=== PATIENT | female | born 1995 | race Caucasian/White ===

== ENCOUNTER 2020-10-19 13:54 | Inpatient (IN) | payer BC, SELFPAY ==
[2020-10-19] VITALS (109 sets, daily range): BP systolic 58–131; BP diastolic 23–99; PULSE 58–185; RESP 18–20; TEMP 36.4–36.7; O2SAT 95–100; BMI 36.5
[2020-10-19] MEDS: AMPICILLIN 2 GM/NS 100 ML 2 GM/100 ML BAG IVPB (17:01)
[2020-10-19] MEDS: LACTATED RINGERS 1,000 ML 125 ML IV CONT ×2 (17:02→19:34)
[2020-10-19 17:03] LABS: Basophils Percent Auto 0.2 % (0.2-1.2); Eosinophils Percent Auto 0.2 % (0-4.4); Immature Granulocyte Absolute 0.06 K/mm3 (0.00-0.031); Immature Granulocyte Percent A 0.5 % (0-0.5); Lymphocytes Percent Auto 9.6 % (18.3-44.2); Mean Corpuscular HGB Conc 35.1 g/dl (32-36); Mean Corpuscular Hemoglobin 30.6 pg (26-34); Mean Corpuscular Volume 87.1 fl (80-100); Mean Platelet Volume 8.9 fl (7.4-10.4); Monocytes Absolute Auto 0.4 K/mm3 (0.1-0.6); Monocytes Percent Auto 3.4 % (2.6-8.5); Neutrophils Absolute Auto 10.8 K/mm3 (1.3-6.7); Neutrophils Percent Auto 86.1 % (45.5-73.1); Platelet Count Result 262 k/mm3 (150-375); Red Blood Count 4.25 M/mm3 (4.2-5.4); Red Cell Distribution Width 12.7 % (11.5-14.5); White Blood Count 12.6 K/mm3 (4.5-10.0)
--- NOTE | 2020-10-19 17:04 | P.PNAN_ITS ---
Anes - Eval Pre Procedure Procedure: labor epidural Date/Time: 10/19/20 17:04 Surgeon: delma Pre Op Diagnosis: Contractions Patient Data Age: 25 Gender: F Height: Weight: Last Vital Signs Pulse 91 10/19/20 17:00 BP 113/61 10/19/20 17:00 Allergies Allergy/AdvReac Type Severity Reaction Status Date / Time No Known Allergies Allergy Verified 10/19/20 13:39 Home Medications Medication Instructions Recorded Confirmed Type prenat.vits,gregg,uhq-enbc-fetzn 1 tablet PO DAILY 10/19/20 10/19/20 History [ #2] Laboratory Tests 10/19/20 10/19/20 16:53 16:53 WBC Pending RBC Pending Hgb Pending Hct Pending MCV Pending MCH Pending MCHC Pending RDW Pending Plt Count Pending MPV Pending Immature Gran % (Auto) Pending Neut % (Auto) Pending Lymph % (Auto) Pending [place] % (Auto) Pending Eos % (Auto) Pending Baso % (Auto) Pending Lymph # (Auto) Pending [place] # (Auto) Pending Eos # (Auto) Pending Baso # (Auto) Pending Abs Immat Gran (auto) Pending Absolute Neuts (auto) Pending Absolute Nucleated RBC Pending Nucleated RBC % Pending RPR Pending Patient hx anesthesia problems: none Family hx anesthesia problems: none PMFSH Family History Family History (Updated 10/19/20 @ 13:49 by Nilo Garza RN) Mother Lupus High cholesterol Heart disease Pre-diabetes Hx of cholecystectomy Grandparent Breast cancer Grandparent Brain cancer Diabetes mellitus Sibling Hx of cholecystectomy Social History Social History Substance use: never Spiritual care concerns: No Exam Day of Procedure 10/19/20 17:04
--- NOTE | 2020-10-19 18:51 | WPDOBADMIT ---
Obstetrics - Admit Note Admission Note: record reviewed. Additions to the history and/or subsequent changes in the physical findings follow. 25 y/o at 36 4/7 weeks here with contractions. Was seen in the office today and her cervix was 2 cm dilated. Feeling painful contractions now. GBS unknown (was collected in the office today.). Good movement. No leakage of fluid. AVSS NST reactive TOCO: contractions every 5 min ABD soft, nontender, gravid, vertex EXT nontender Cervix 4/80/-2. A: IUP at 36 4/7 weeks with labor. P: Ampicillin. Anticipate .
[2020-10-19] MEDS: AMPICILLIN 1 GM/NS 50 ML 1 GM/50 ML BAG IVPB (20:59)
--- NOTE | 2020-10-19 21:38 | LDADM ---
This patient, Bev Duncan, was admitted to Labor/Delivery/Recovery 107 on 10/19/20 at 13:54. Plans for labor, pain management and were discussed with patient. Patient/family oriented to hospital policies and general routines including ID bracelet, bed and alarms, visiting hours, pain management, procedures, bathroom and other care routines, personal items, smoking policy, room service/diet and guest tray routines, security routines, and visiting hours. Patient/Family are encouraged to report perceived risks to care and to ask questions if they do not understand what they are told or what they should do. See OBIX for further documentation.
[2020-10-20] VITALS (55 sets, daily range): BP systolic 81–132; BP diastolic 54–71; PULSE 69–109; RESP 16–20; TEMP 36.4–37.4; O2SAT 98–100
[2020-10-20] MEDS: AMPICILLIN 1 GM/NS 50 ML 1 GM/50 ML BAG IVPB (01:01)
[2020-10-20] MEDS: LACTATED RINGERS 1,000 ML 125 ML IV CONT (01:01)
--- NOTE | 2020-10-20 02:07 | PM.OBPNLAB ---
Pain Control Date/time seen: 10/20/20 02:07 Comments: Comfortable with epidural Pelvic Exam Dilation (cm): 10 Effacement (%): 100 station: +1 Contractions Contraction frequency: 4 Contraction pattern: Regular Status status: Category l Assessment and Plan Comments: Pushing well. Anticipate .
[2020-10-20] MEDS: OXYTOCIN 30 UNITS/NS 500 ML 30 UNITS/500 ML BAG IV CONT (02:20)
--- NOTE | 2020-10-20 04:37 | P.PCNOB_ITS ---
OB - Delivery Note Procedure Delivery date: 10/20/20 Procedure: Vacuum assisted vaginal delivery events: Labor < 37 Weeks Induction method: none Delivery augmentation: pitocin Delivery monitor: external FHT and external uterine Route of delivery: vacuum extraction Laceration Description: Perineal - 2nd Degree Delivery repair: vicryl (3-0) Specimen: Yes (cord blood, placenta) Quantitative Blood Loss (ml): 320 Anesthesia type: Epidural Disposition: PACU Complications: None Narrative: 25 y/o at 36 5/7 weeks gestation who had presented to the hospital with complaint of contractions. Labor was diagnosed. She received ampicillin for GBS unknown status in the . She received an epidural for pain control. Her labor progressed and her cervix dilated completely. She pushed with good effort for over 2 hours and was able to bring the vertex to the +2 of 3 station, in ROP position. She also received oxytocin augmentation during the second stage. At this point, as she had stopped making descent, I offered VAVD vs. vs. continued pushing. The patient and her and I reviewed risks, benefits and alternatives in detail and she opted to proceed with VAVD. The Kiwi vacuum cup was applied to the vertex. Using the Dreifingergriff, the head was gently flexed. Over 3 contractions, and with no pop-offs, the head descended and rotated from ROP to JULIO position, then delivered to the perineum. The Kiwi was disconnected. The body delivered. The nose and mouth were bulb suctioned. After a delay, the cord was clamped and cut. The infant was handed off the field. Cord blood was collected. The placenta delivered spontaneously and was grossly normal in appearance. The usual 3 vessel cord was noted. A second degree midline perineal laceration was sustained, with bilateral vaginal sulcal lacerations. These were reapproximated using 3 0 Vicryl in the usual layered fashion. Excellent hemostasis resulted as did excellent reapproximation of the normal anatomy. Needle and instrument counts were correct. The patient was taken to recovery room in stable condition. The went to the nursery in stable condition. I was present and scrubbed for the entire delivery. Pediatrics was also present for delivery. [place] Baby Date of : 10/20/20 Time of : 04:13 Weeks of gestation at delivery: 36 Infant gender: Male Weight (pounds): 6 Weight (ounces): 14 presentation: vertex position: Right Occiput Anterior Placenta delivery description: Spontaneous and Normal Configuration cord vessel description: 3 Vessels and Delayed Cord Clamping score one minute: 7 score five minutes: 8
--- NOTE | 2020-10-20 04:44 | PM.OBDSVD ---
DS: Admitting Diagnosis Admitting Diagnosis Admitting Diagnosis: IUP at 36 4/7 weeks Labor DS: Discharge Diagnosis Discharge Diagnosis (1) Vacuum-assisted vaginal delivery: Code(s): Z37.9 - Outcome of delivery, unspecified Status: Acute (2) delivery: Code(s): O60.10X0 - labor with delivery, unspecified trimester, not applicable or unspecified Status: Acute OB - DS: Summary OB Procedures : None OB Procedures Intrapartum: Vacuum extraction OB Procedures: : None DS: Data Data Completed and Pending Labs on day of discharge: Labs from last 24 hours 10/19/20 10/19/20 10/19/20 16:53 16:53 16:53 WBC 12.6 H RBC 4.25 Hgb 13.0 Hct 37.0 MCV 87.1 MCH 30.6 MCHC 35.1 RDW 12.7 Plt Count 262 MPV 8.9 Immature Gran % (Auto) 0.5 Neut % (Auto) 86.1 H Lymph % (Auto) 9.6 L [place] % (Auto) 3.4 Eos % (Auto) 0.2 Baso % (Auto) 0.2 Lymph # (Auto) 1.20 [place] # (Auto) 0.4 Eos # (Auto) 0.0 Baso # (Auto) 0.0 Abs Immat Gran (auto) 0.06 H Absolute Neuts (auto) 10.8 H Absolute Nucleated RBC 0.0 Nucleated RBC % 0.0 RPR Pending Blood Type A Positive Antibody Screen Negative Discharge Plan Discharge Attending physician on discharge: Patrick Menendez Discharging Clinician: Patrick Menendez Patient Disposition: Home, Self-Care Activity: pelvic rest Diet: regular Discharge Instructions: Call or return if temperature above 100.4? F, increased abdominal pain, increased vaginal bleeding or any new problems. Stand Alone Forms: General Discharge Information Follow-up/Referrals: Patrick Menendez MD [Physician] - 6 Weeks Discharge Medications: New ibuprofen 600 mg tablet 600 mg PO Q6H PRN (Reason: cramps) Qty: 30 RF: 0 ferrous sulfate 325 mg (65 mg iron) tablet 325 mg PO DAILY Qty: 30 RF: 0 No Action #2 Tablet 1 tablet PO DAILY RF: 0 Date of admission: 10/19/20 13:54 Primary Care Provider: PHYSICIAN,PREVENTIVE MEDICINE SPECIALIST Admitting Provider: Patrick Menendez Attending physician on admission: Patrick Menendez Condition: Stable
[2020-10-20] MEDS: OXYTOCIN 30 UNITS/NS 500 ML 30 UNITS/500 ML BAG 125 UNITS IV CONT (04:49)
[2020-10-20] MEDS: IBUPROFEN 600 MG TABLET PO ×3 (08:07→21:12)
--- NOTE | 2020-10-20 10:39 | PC.NURSE ---
Consulted with patient, reviewed feeding cues, frequencies, duration of feedings, feeding elimination flow sheet, and signs of adequate intake. Infant on breast when I entered the room. Deep latch noted, has lips flanged out, mom denies pain. Reviewed positioning/alignment, holding breast and asymmetrical latch on. Infant was able to latch correctly. Infant nursed eagerly, with steady draws and frequent swallowing noted. Reviewed signs of a correct latch, effective nursing and suck swallow ratio. Infant was able to maintain latch without discomfort to mother. Instructed mother to call out for RN assistance if she is unable to latch for feeding or she has discomfort with nursing. Instructed feeding should be initiated three hours from start of last feeding or if feeding cues are noted before. Mother voiced understanding of information shared.
[2020-10-21] MEDS: IBUPROFEN 600 MG TABLET PO ×3 (04:24→17:38)
[2020-10-21 04:39] LABS: Hematocrit 29.4 % (37.0-47.0)
--- NOTE | 2020-10-21 07:45 | WPDANLDPN2 ---
Anes-Prog Note L&D Date/Time: 10/21/20 07:45 Comfortable throughout: labor and delivery Neuraxial method: epidural Epidural/Spinal procedure site: clean & non-tender Neuro status: Neuro function grossly intact. Cardiovascular status: normal Respiratory status: normal Airway patency: baseline Mental status: baseline Post-Op hydration status: normal Vital Signs: Last Vital Signs Temp 97.5 F L 10/20/20 21:00 Pulse 69 10/20/20 21:00 Resp 16 10/20/20 21:00 BP 103/60 10/20/20 21:00 Pulse Ox 100 10/20/20 21:00 Pain score (VAS): 0/10 Patient feedback: Patient satisfied with anesthetic care. Other findings: some skin numbness reported on right thigh, informed pt that it should reso
--- NOTE | 2020-10-21 08:00 | PC.NURSE ---
PT introductions made and plan of care discussed per post pain management, breast feeding, daily care activities. PT verbalized understanding of such care.
--- NOTE | 2020-10-21 08:36 | PM.OBPNVD ---
OB - PN: Subj Subjective Date/time seen: 10/21/20 08:36 Narrative: Pain OK. Would like circumcision for son. OB - PN: Obj Data Labs CBC & Chem 7: 10/21/20 04:28 Labs: Laboratory Results - last 24 hr 10/21/20 04:28 Hgb 10.0 L D Hct 29.4 L OB - PN A/P Plan Comments: A: PPD#1, doing well. P: Routine care. Reviewed circ. Exam Psych: Other: AVSS ABD soft, nontender, fundus firm EXT nontender
[2020-10-21] MEDS: MINERAL OIL 30 ML UDC (09:15)
[2020-10-21] MEDS: MULTIVIT/MIN/PREN/FOL AC/IRON TABLET 1 TAB PO (09:55)
[2020-10-21] MEDS: DOCUSATE SODIUM 100 MG CAPSULE PO ×2 (09:55→17:38)
[2020-10-21] MEDS: ACETAMINOPHEN 325 MG TABLET 650 MG PO ×2 (09:56→17:38)
[2020-10-21 10:00] VITALS: BP 119/68; PULSE 61; RESP 18; TEMP 35.8; O2SAT 100
[2020-10-21 10:37] LABS: Rapid Plasma Reagin Non-Reactive (NonReactive)
[2020-10-21 19:30] VITALS: BP 105/68; PULSE 68; RESP 16; TEMP 36.6
[2020-10-22] MEDS: IBUPROFEN 600 MG TABLET PO ×3 (00:10→15:07)
[2020-10-22] MEDS: DOCUSATE SODIUM 100 MG CAPSULE PO (07:40)
[2020-10-22 08:30] VITALS: BP 126/74; PULSE 80; RESP 16; TEMP 37; O2SAT 99
--- NOTE | 2020-10-22 09:02 | PM.OBPNVD ---
OB - PN: Subj Subjective Date/time seen: 10/22/20 09:02 Narrative: Pain OK. Would like to go home. OB - PN: Obj Data Labs CBC & Chem 7: 10/21/20 04:28 Labs: Laboratory Results - last 24 hr 10/19/20 16:53 RPR Non-reactive OB - PN A/P Plan Comments: A: PPD#2, doing well. P: Home to f/u 6 weeks. Exam Psych: Other: AVSS ABD soft, nontender, fundus firm EXT nontender
[2020-10-22] MEDS: BENZOCAINE 20% AER SPR (*SP) 56 GM CAN 1 SPRAY TOPICAL (10:12)
[2020-10-22] MEDS: MULTIVIT/MIN/PREN/FOL AC/IRON TABLET 1 TAB PO (10:12)
[2020-10-22] MEDS: WITCH HAZEL 40 PADS 1 PAD TOPICAL (10:12)
--- NOTE | 2020-10-22 12:32 | PC.NURSE ---
0840 Breast feeding note; mother reports baby seems to have been sleepier at feedings since last evening. Baby's bilirubin level higher, but WNL, but close to requiring phototherapy. Bilirubin to be repeated about noon today. Mother states she feels her milk is starting to come in. Pt set up with breast pump to hopefully have supplemental pumped breast milk to feed to baby. Baby is 36 weeks. Yesterday baby seemed to be nursing very eagerly, and vigorously for long feedings. Now mother to nurse baby about 15 minutes on each side, then offer supplement when available, still working to get infant to nurse q2-3h and on demand. Reviewed breast pump set up, and care of equipment. 24mm flanges used and appeared appropriate size. Parents voiced understanding of all information shared, and agree with the plan.
--- NOTE | 2020-10-22 15:38 | PC.NURSE ---
Dietary notified that patient is going to a [facility]
[2020-10-24 14:13] VITALS: BP 121/75; PULSE 83; RESP 20; TEMP 37.2; O2SAT 99
== END 2020-10-22 15:46 | disposition home or self-care (01) | DRG 807 ==
LOC: ANHLDR 10-20 04:46 → ANHOB2 10-20 08:19
PROVIDERS: Admitting Provider Obstetrics & Gynecology; Visit Provider Obstetrics & Gynecology
DX: O60.14X0 Preterm labor third trimester with preterm delivery third trimester, not applicable or unspecified (principal); Z37.0 Single live birth; Z3A.36 36 weeks gestation of pregnancy; O70.1 Second degree perineal laceration during delivery
CPT/HCPCS: 36415; 85014; 85018; 85025; 86592; 86850; 86900; 86901; 88307; A9270; J0290; J2590; J7120

== ENCOUNTER 2023-02-03 11:18 | Outpatient (CLI) | payer BC, SELFPAY ==
[2023-02-03 11:49] VITALS: BP 144/83; PULSE 62
[2023-02-03 12:01] VITALS: BP 141/77; PULSE 57
[2023-02-03 12:01] LABS: Basophils Percent Auto 0.4 % (0.2-1.2); Eosinophils Absolute Auto 0.1 K/mm3 (0-0.3); Eosinophils Percent Auto 0.7 % (0-4.4); Hematocrit 38.4 % (37.0-47.0); Hemoglobin 13.4 g/dL (12.0-15.0); Immature Granulocyte Absolute 0.06 K/mm3 (0.00-0.031); Immature Granulocyte Percent A 0.6 % (0-0.5); Lymphocytes Absolute Auto 2.31 K/mm3 (0.9-3.2); Lymphocytes Percent Auto 23.9 % (18.3-44.2); Mean Corpuscular HGB Conc 34.9 g/dl (32-36); Mean Corpuscular Hemoglobin 30.5 pg (26-34); Mean Corpuscular Volume 87.3 fl (80-100); Mean Platelet Volume 9.3 fl (7.4-10.4); Monocytes Absolute Auto 0.4 K/mm3 (0.1-0.6); Monocytes Percent Auto 3.6 % (2.6-8.5); Neutrophils Absolute Auto 6.8 K/mm3 (1.3-6.7); Neutrophils Percent Auto 70.8 % (45.5-73.1); Platelet Count Result 249 k/mm3 (150-375); Red Cell Distribution Width 12.5 % (11.5-14.5); White Blood Count 9.7 K/mm3 (4.5-10.0)
[2023-02-03 12:08] LABS: Creatinine Urine 60.8 mg/dL; Total Protein Urine Random 35 mg/dL; Ur Ttl Prot Creatinine Ratio 0.58 mg/mg (0-0.20)
[2023-02-03 12:09] LABS: Appearance Urine Clear (Clear); Bacteria Urine Rare /hpf; Bilirubin Urine Negative (Negative); Blood Urine Negative (Negative); Color Urine Yellow (Yellow); Glucose Urine UA Negative (Negative); Ketones Urine Negative (Negative); Leukocyte Esterase Ur 2+ LEU/UL (NEGATIVE); Nitrate Urine Negative (Negative); Non Pathogenic Casts 0-2; Protein Urine 1+ mg/dL (Negative); RBC Urine 0-2 /hpf (0-2); Specific Grav Ur 1.009 (1.001-1.035); Squamous Epithelial Cell Urine Moderate /hpf (Few); Urobilinogen Urine 0.2 mg/dL (<2.0); WBC Urine 21-50 /hpf (0-3); pH Urine 6.5 (5.0-9.0)
[2023-02-03 12:11] LABS: Add Urine Microscopic? YES
[2023-02-03 12:16] VITALS: BP 144/85; PULSE 51
[2023-02-03 12:18] LABS: Alanine Aminotransferase 24 U/L (6-35); Albumin Level 3.6 g/dL (3.5-5.1); Alkaline Phosphatase 167 U/L (38-126); Anion Gap 9 mmol/L (8-16); Aspartate Amino Transferase 26 U/L (14-36); Bilirubin,Total 0.3 mg/dL (0.2-1.3); Blood Urea Nitrogen 10 mg/dL (7-17); Calcium 8.5 mg/dL (8.4-10.2); Carbon Dioxide 20 mmol/L (22-30); Chloride 105 mmol/L (98-107); Estimated Glomerular Filt Rate > 60; Glucose 85 mg/dL (65-110); Sodium 134 mmol/L (137-145); Uric Acid 5.8 mg/dL (2.5-7.5)
[2023-02-03 12:31] VITALS: BP 146/82; PULSE 56
[2023-02-03 12:46] VITALS: BP 142/78; PULSE 55
--- NOTE | 2023-02-03 12:52 | P.PNOB_ITS ---
OB - Triage/Final Diagnosis Visit Information Date of evaluation: 02/03/23 Reason for evaluation: other ( hypertension) Comments/Additional reasons for admission: I have assessed the risk for this patient, Bev Duncan, and determined that she would benefit from observation care. Evaluation Laboratory results: Laboratory Tests 02/03/23 02/03/23 11:35 11:50 WBC 9.7 RBC 4.40 Hgb 13.4 D Hct 38.4 MCV 87.3 MCH 30.5 MCHC 34.9 RDW 12.5 Plt Count 249 MPV 9.3 Immature Gran % (Auto) 0.6 H Neut % (Auto) 70.8 Lymph % (Auto) 23.9 [place] % (Auto) 3.6 Eos % (Auto) 0.7 Baso % (Auto) 0.4 Lymph # (Auto) 2.31 [place] # (Auto) 0.4 Eos # (Auto) 0.1 Baso # (Auto) 0.0 Abs Immat Gran (auto) 0.06 H Absolute Neuts (auto) 6.8 H Absolute Nucleated RBC 0.0 Nucleated RBC % 0.0 Sodium 134 L Potassium 4.0 Chloride 105 Carbon Dioxide 20 L Anion Gap 9 BUN 10 Creatinine 0.60 L Estim Creat Clear Calc Not Reportable Estimated GFR > 60 Glucose 85 Uric Acid 5.8 Calcium 8.5 Total Bilirubin 0.3 AST 26 ALT 24 Alkaline Phosphatase 167 H Total Protein 7.0 Albumin 3.6 Urine Color Yellow Urine Appearance Clear Urine pH 6.5 Ur Specific [place] 1.009 Urine Protein 1+ H Urine Glucose (UA) Negative Urine Ketones Negative Ur Blood (Man) Negative Urine Nitrate Negative Urine Bilirubin Negative Urine Urobilinogen 0.2 Ur Leukocyte Esterase 2+ H Urine RBC 0-2 Urine WBC 21-50 Ur Squamous Epith Cells Moderate H Urine Bacteria Rare Urine Casts 0-2 U Random Total Protein 35 Urine Creatinine 60.8 Protein/Creat Ratio 2 0.58 H Vital signs: Vital Signs - 24 hr 02/03/23 11:49 02/03/23 12:01 02/03/23 12:16 Pulse Rate 62 57 L 51 L Blood Pressure 144/83 H 141/77 H 144/85 H 02/03/23 12:31 02/03/23 12:46 Pulse Rate 56 L 55 L Blood Pressure 146/82 H 142/78 H
[2023-02-03 13:01] VITALS: BP 142/78; PULSE 55
== END 2023-02-03 12:52 | disposition home or self-care (01) ==
LOC: ANHOBOP 11:23 → ANHOBPP 11:23
PROVIDERS: Visit Provider Obstetrics & Gynecology
DX: O13.9 Gestational [pregnancy-induced] hypertension without significant proteinuria, unspecified trimester (principal); Z3A.00 Weeks of gestation of pregnancy not specified
CPT/HCPCS: 36415; 59025; 80053; 81001; 82570; 84156; 84550; 85025; 87086; 99199

== ENCOUNTER 2023-02-08 08:23 | Outpatient (CLI) | payer BC, SELFPAY ==
[2023-02-08 09:03] LABS: Collection Time Urine 24 HOURS
[2023-02-08 09:28] LABS: Creatinine Urine 73.1 mg/dL; Patient Weight 209 Lbs; Total Protein Urine Random 15 mg/dL
[2023-02-08 09:36] LABS: Creatinine Clearance Urine 122.8 ml/min (75-125); Total Protein Urine 24 Hr 285 mg/24hr (28-141); Total Volume 24 Hour Urine 1900 ml
== END 2023-02-08 08:24 | disposition home or self-care (01) ==
LOC: ANHLAB 08:25
PROVIDERS: Visit Provider Obstetrics & Gynecology
DX: O13.9 Gestational [pregnancy-induced] hypertension without significant proteinuria, unspecified trimester (principal); Z3A.00 Weeks of gestation of pregnancy not specified
CPT/HCPCS: 81050; 82575; 84156

== ENCOUNTER 2023-02-08 08:33 | Outpatient (CLI) | payer BC, SELFPAY ==
[2023-02-08] VITALS (8 sets, daily range): BP systolic 140–155; BP diastolic 83–100; PULSE 52–75
--- NOTE | ~2023-02-08 | US_ITS ---
EXAMINATION: US OB follow up DATE: 02/08/2023 11:25 INDICATION: Hypertension. Third trimester. TECHNIQUE: Real-time ultrasound of the pelvis was performed. COMPARISON: None. FINDINGS: There is a single living fetus in vertex presentation. The placenta is posterior. heart rate i s 153 beats per minute (bpm). The amniotic fluid index is 13.1 cm, which is normal. The following biometric data were obtained: Biparietal diameter (BPD): 7.6 cm; head circumference (HC): 27.4 cm; abdominal circumference (AC): 26 .1 cm; femur length (FL): 6.0 cm. These measurements are concordant. Estimated weight is 1597 g +/- 240 g, which correlates with the 21st percentile when 04/11/23 is used as estimated date of delivery. As single measurements, these parameters are each equal to the following estimated gestational ages: BPD: 30 weeks 3 days. HC: 30 weeks 0 days. AC: 30 weeks 2 days. FL: 31 weeks 2 days. estimated gestational age based solely on measurements from this exam is 30 weeks 4 days +/- 2 weeks 1 days. IMPRESSION: 1. Single living fetus in vertex presentation. 2. Estimated weight is 1597 g +/- 240 g, which correlates with the 21st percentile when 3 is used as estimated date of delivery. Reviewed, dictated and finalized at location A. IMPRESSION: 1. Single living fetus in vertex presentation. 2. Estimated weight is 1597 g +/- 240 g, which correlates with the 21st percentile when 04/11/23 is used as estimated date of delivery.
[2023-02-08 09:15] LABS: Basophils Percent Auto 0.3 % (0.2-1.2); Eosinophils Absolute Auto 0.1 K/mm3 (0-0.3); Eosinophils Percent Auto 0.5 % (0-4.4); Hematocrit 39.1 % (37.0-47.0); Hemoglobin 13.8 g/dL (12.0-15.0); Immature Granulocyte Absolute 0.04 K/mm3 (0.00-0.031); Immature Granulocyte Percent A 0.4 % (0-0.5); Lymphocytes Absolute Auto 1.44 K/mm3 (0.9-3.2); Lymphocytes Percent Auto 14.6 % (18.3-44.2); Mean Corpuscular HGB Conc 35.3 g/dl (32-36); Mean Corpuscular Hemoglobin 30.7 pg (26-34); Mean Corpuscular Volume 87.1 fl (80-100); Mean Platelet Volume 9.3 fl (7.4-10.4); Monocytes Absolute Auto 0.3 K/mm3 (0.1-0.6); Monocytes Percent Auto 2.7 % (2.6-8.5); Neutrophils Percent Auto 81.5 % (45.5-73.1); Platelet Count Result 226 k/mm3 (150-375); Red Blood Count 4.49 M/mm3 (4.2-5.4); Red Cell Distribution Width 12.7 % (11.5-14.5); White Blood Count 9.8 K/mm3 (4.5-10.0)
[2023-02-08 09:29] LABS: Alanine Aminotransferase 35 U/L (6-35); Albumin Level 3.5 g/dL (3.5-5.1); Alkaline Phosphatase 179 U/L (38-126); Anion Gap 5 mmol/L (8-16); Aspartate Amino Transferase 47 U/L (14-36); Bilirubin,Total 0.4 mg/dL (0.2-1.3); Blood Urea Nitrogen 7 mg/dL (7-17); Calcium 8.5 mg/dL (8.4-10.2); Carbon Dioxide 23 mmol/L (22-30); Chloride 105 mmol/L (98-107); Estimated Glomerular Filt Rate > 60; Glucose 89 mg/dL (65-110); Potassium 4.4 mmol/L (3.4-5.0); Sodium 133 mmol/L (137-145); Uric Acid 6.1 mg/dL (2.5-7.5)
--- NOTE | 2023-02-08 10:45 | PC.NURSE ---
[phone]-paged Dr. Menendez [phone]-Called office with no answer [phone]-Left message for Dr. Tolentino on cell phone [phone]-Called office with no answer [phone]-paged Dr. Menendez [phone]- Dr. Menendez returned page. Informed of pt admission with complaints right upper quadrant pain. Pt had headache for 18hrs with no relief from Tylenol. She states that it is now gone. BPs and lab results given. Informed of tracing with occasional variables and occasional 10X10 accelerations. Coming in to see pt and discuss plan of care.
--- NOTE | 2023-02-08 12:12 | PC.NURSE ---
Dr. Menendez at bedside to assess pt and discuss plan of care.
--- NOTE | 2023-02-08 12:25 | PC.NURSE ---
Monitor reapplied to monitor for contractions. No contractions seen on monitor or felt per pt.
[2023-02-08] MEDS: BETAMETHASONE SOD PHOS/ACETATE 30 MG/5 ML VIAL 12 MG IM (12:29)
== END 2023-02-08 12:35 | disposition home or self-care (01) ==
LOC: ANHOBOP 08:41 → ANHOBPP 08:42
PROVIDERS: Visit Provider Obstetrics & Gynecology
DX: O13.9 Gestational [pregnancy-induced] hypertension without significant proteinuria, unspecified trimester (principal); R10.11 Right upper quadrant pain; Z3A.30 30 weeks gestation of pregnancy
CPT/HCPCS: 36415; 59025; 76816; 80053; 84550; 85025; 96372; 99199; J0702

== ENCOUNTER 2023-02-09 12:13 | Outpatient (CLI) | payer BC, SELFPAY ==
[2023-02-09] MEDS: BETAMETHASONE SOD PHOS/ACETATE 30 MG/5 ML VIAL 12 MG IM (12:30)
== END 2023-02-09 12:14 | disposition home or self-care (01) ==
LOC: ANHOBOP 12:18
PROVIDERS: Visit Provider Obstetrics & Gynecology
DX: Z34.90 Encounter for supervision of normal pregnancy, unspecified, unspecified trimester (principal); Z3A.00 Weeks of gestation of pregnancy not specified
CPT/HCPCS: 96372; J0702

== ENCOUNTER 2023-02-15 05:51 | Observation (INO) | payer BC, SELFPAY ==
[2023-02-15] VITALS (31 sets, daily range): BP systolic 135–165; BP diastolic 82–103; PULSE 50–91; RESP 15–16; TEMP 36.4–36.6; O2SAT 95–99; BMI 38.2
--- NOTE | ~2023-02-15 | US_ITS ---
EXAMINATION: US abdomen limited DATE: 02/15/2023 08:20 INDICATION: Abdominal pain. Third trimester . TECHNIQUE: Multiple grayscale and Doppler ultrasound images of the abdomen were obtained. COMPARISON: None FINDINGS: The visualized portion of the head of the pancreas is normal. The liver is normal without f ocal lesion. There is normal flow in main portal vein. The gallbladder is normal in size. No gallston es or gallbladder wall thickening. There was no sonographic Pettit sign. The common duct is normal an d measures 4 mm. IMPRESSION: 1. Normal right upper quadrant ultrasound. Reviewed, dictated and finalized at location A.
[2023-02-15 06:58] LABS: Basophils Absolute Auto 0.1 K/mm3 (0.0-0.1); Basophils Percent Auto 0.4 % (0.2-1.2); Eosinophils Percent Auto 0.3 % (0-4.4); Hematocrit 40.5 % (37.0-47.0); Hemoglobin 14.1 g/dL (12.0-15.0); Immature Granulocyte Absolute 0.09 K/mm3 (0.00-0.031); Immature Granulocyte Percent A 0.7 % (0-0.5); Lymphocytes Absolute Auto 2.05 K/mm3 (0.9-3.2); Lymphocytes Percent Auto 15.3 % (18.3-44.2); Mean Corpuscular HGB Conc 34.8 g/dl (32-36); Mean Corpuscular Hemoglobin 30.5 pg (26-34); Mean Corpuscular Volume 87.7 fl (80-100); Mean Platelet Volume 9.2 fl (7.4-10.4); Monocytes Absolute Auto 0.5 K/mm3 (0.1-0.6); Monocytes Percent Auto 3.7 % (2.6-8.5); Neutrophils Absolute Auto 10.7 K/mm3 (1.3-6.7); Neutrophils Percent Auto 79.6 % (45.5-73.1); Platelet Count Result 234 k/mm3 (150-375); Red Blood Count 4.62 M/mm3 (4.2-5.4); Red Cell Distribution Width 13.1 % (11.5-14.5); White Blood Count 13.4 K/mm3 (4.5-10.0)
[2023-02-15 07:07] LABS: Alanine Aminotransferase 55 U/L (6-35); Albumin Level 3.4 g/dL (3.5-5.1); Alkaline Phosphatase 159 U/L (38-126); Anion Gap 4 mmol/L (8-16); Aspartate Amino Transferase 58 U/L (14-36); Bilirubin,Total 0.4 mg/dL (0.2-1.3); Blood Urea Nitrogen 11 mg/dL (7-17); Calcium 8.7 mg/dL (8.4-10.2); Carbon Dioxide 24 mmol/L (22-30); Chloride 105 mmol/L (98-107); Estimated Glomerular Filt Rate > 60; Glucose 88 mg/dL (65-110); Potassium 4.4 mmol/L (3.4-5.0); Sodium 133 mmol/L (137-145); Uric Acid 6.1 mg/dL (2.5-7.5)
--- NOTE | 2023-02-15 07:11 | LDADM ---
This patient, Bev Duncan, was admitted to OB Post 116 on 02/15/23 at 05:51. Plans for labor, pain management and were discussed with patient. Patient/family oriented to hospital policies and general routines including ID bracelet, bed and alarms, visiting hours, pain management, procedures, bathroom and other care routines, personal items, smoking policy, room service/diet and guest tray routines, infant security routines, and visiting hours. Patient/Family are encouraged to report perceived risks to care and to ask questions if they do not understand what they are told or what they should do. See OBIX for further documentation.
[2023-02-15 07:12] LABS: Total Protein Urine Random 317 mg/dL; Ur Ttl Prot Creatinine Ratio 2.38 mg/mg (0-0.20)
[2023-02-15 07:22] LABS: Appearance Urine Cloudy (Clear); Bacteria Urine Rare /hpf; Bilirubin Urine Negative (Negative); Blood Urine Negative (Negative); Color Urine Yellow (Yellow); Glucose Urine UA Negative (Negative); Ketones Urine Negative (Negative); Leukocyte Esterase Ur 1+ LEU/UL (NEGATIVE); Nitrate Urine Negative (Negative); Non Pathogenic Casts 0-2; Protein Urine 3+ mg/dL (Negative); RBC Urine 0-2 /hpf (0-2); Specific Grav Ur 1.018 (1.001-1.035); Squamous Epithelial Cell Urine Moderate /hpf (Few); Urobilinogen Urine 0.2 mg/dL (<2.0)
[2023-02-15 07:24] LABS: Add Urine Microscopic? YES
--- NOTE | 2023-02-15 07:42 | PC.NURSE ---
Pagebecca NULL at 0627. Received callback at 0636. tracing has moderate variability but no accelerations. Patient is not christo. Patient has complaints of upper abdominal pain since last night. Patient denies headache or vision changes. Patient has a diagnosis of preeclampsia with this and is scheduled for a gallbladder ultrasound on Saturday 02/17. Verbal orders from MD to obtain new [facility] labs and ultrasound today. Patient has been NPO this morning and has not yet taken her Procardia. Orders received to wait on taking meds.
--- NOTE | 2023-02-15 09:09 | PM.IMHP ---
H&P: HPI History of Present Illness Date/Time: 02/15/23 09:09 Chief Complaint: Abdominal pain Narrative: 27 y/o G3 [id number] at 32 1/7 weeks who began to have upper abdominal pain last evening. No nausea / vomiting. No headache or visual field change. BP has been increasing. 24 hour urine 285 mg last week. Received betamethasone x 2 last week. Good movement. No contractions. Review of Systems Review of Systems: All systems reviewed & are unremarkable except as noted in HPI and below [facility] History Surgical History History of tonsillectomy Family History Family History Mother Lupus High cholesterol Heart disease Pre-diabetes Hx of cholecystectomy Grandparent Breast cancer Grandparent Brain cancer Diabetes mellitus Sibling Hx of cholecystectomy Social History Social History Smoking status: Never smoker Substance use: never Spiritual care concerns: No Meds Home Medications and Allergies Home Medications Medication Instructions Recorded Confirmed Type prenat.vits,gregg,lac-euig-hahct 1 tablet PO DAILY 10/19/20 02/15/23 History ibuprofen 600 mg tablet 600 mg PO Q6H PRN cramps #30 tabs 10/20/20 02/15/23 Rx ferrous sulfate 325 mg (65 mg 325 mg PO DAILY #30 tabs 10/21/20 02/15/23 Rx iron) tablet nifedipine 30 mg tablet,extended 30 mg PO DAILY 02/15/23 02/15/23 History release 24 hr Allergies Allergy/AdvReac Type Severity Reaction Status Date / Time No Known Allergies Allergy Verified 02/15/23 07:14 Vital Signs Vital Signs - 24 hr 02/15/23 06:06 02/15/23 06:16 02/15/23 06:31 Pulse Rate 70 50 L 56 L Blood Pressure 143/103 H 156/85 H 147/87 H Oxygen Delivery 02/15/23 06:46 02/15/23 07:01 02/15/23 07:16 Pulse Rate 52 L 55 L 54 L Blood Pressure 149/92 H 156/93 H 137/88 Oxygen Delivery 02/15/23 07:31 02/15/23 08:14 02/15/23 08:16 Pulse Rate 64 62 55 L Blood Pressure 141/90 H 158/96 H 151/91 H Oxygen Delivery 02/15/23 08:31 02/15/23 08:46 02/15/23 07:00 Pulse Rate 59 L 77 Blood Pressure 165/97 H 153/100 H Oxygen Delivery Room Air Exam Const: Orientation/consciousness: patient oriented x3 Other: Well-developed, well-nourished female in no acute distress. Neck: Thyroid: thyroid normal Lymphatic: no lymphadenopathy noted (in neck, axilla or inguinal nodes) Resp: Effort & Inspection: normal respiratory effort Auscultation: clear to auscultation bilaterally Cardio: Rate: regular rate Rhythm: regular rhythm Heart sounds: S1 normal heart sound present and S2 normal heart sound present GI: Other: ABD: Soft, gravid. NST +variability. TOCO: no contractions. Mild midepigastric and RUQ tenderness to palpation. No guarding or rebound tenderness. No hepatosplenomegaly. : General: Yes no CVA tenderness Other: Deferred Back/Spine/Pelvis: Back: no CVA tenderness Skin: General skin exam: normal color and no rashes or lesions noted Neuro: General: patient oriented x3 Extrem: Other: Extremities: nontender with no edema Psych: Mental Status: mental status grossly normal Affect: normal affect H&P: Results Labs Labs: Short CBC 02/15/23 Range/Units 06:44 WBC 13.4 H (4.5-10.0) K/mm3 Hgb 14.1 (12.0-15.0) g/dL Hct 40.5 (37.0-47.0) % Plt Count 234 (150-375) k/mm3 BMP 02/15/23 06:44 Sodium 133 L Potassium 4.4 Chloride 105 Carbon Dioxide 24 BUN 11 Creatinine 0.70 Glucose 88 Calcium 8.7 Liver Function 02/15/23 Range/Units 06:44 Total Bilirubin 0.4 (0.2-1.3) mg/dL AST 58 H (14-36) U/L ALT 55 H (6-35) U/L Alkaline Phosphatase 159 H (38-126) U/L Albumin 3.4 L (3.5-5.1) g/dL Urine 02/15/23 Range/Units 06:44 Urine Color Yellow (Yellow) Urine Appear
[2023-02-15] MEDS: FAMOTIDINE 20 MG/2 ML VIAL IV PUSH (09:11)
[2023-02-15] MEDS: LACTATED RINGERS 1,000 ML 75 ML IV CONT (09:11)
[2023-02-15] MEDS: MAGNESIUM SULF 4 GM/WATER100ML 4 GM/100 ML BAG IVPB (09:12)
--- NOTE | 2023-02-15 09:29 | PC.NURSE ---
0845 MD at bedside discussing plan of care with patient and her spouse. Verbal orders received for 4g magnesium sulfate bolus over 30 minutes followed by 2g/hr maintenance dose. Patient to be transferred to [facility]. Patient has no questions at this time and agrees with plan of care.
--- NOTE | 2023-02-15 09:35 | PC.NURSE ---
0918- Gave report via telephone to Jean Claude HOLM at [place].
[2023-02-15] MEDS: MAGNESIUM SULF 20GM/WATER500ML 500 ML 50 MG IV CONT (09:47)
--- NOTE | 2023-02-15 09:50 | PC.NURSE ---
Hung new bag of magnesium sulfate at 0947 at 2g/hr. Verified pump settings with Sophia Arcos RN
--- NOTE | 2023-02-15 10:44 | PC.NURSE ---
[facility] arrived at 1025. RN at bedside with EMS. Patient transferred to [facility] and EMS left with patient at 1031.
== END 2023-02-15 10:31 | disposition short-term general hospital (02) ==
LOC: ANHOBPP 05:56
PROVIDERS: Admitting Provider Obstetrics & Gynecology; Visit Provider Obstetrics & Gynecology
DX: O14.93 Unspecified pre-eclampsia, third trimester (principal); O26.893 Other specified pregnancy related conditions, third trimester; R10.9 Unspecified abdominal pain; Z79.1 Long term (current) use of non-steroidal anti-inflammatories (NSAID); Z3A.32 32 weeks gestation of pregnancy; Z79.899 Other long term (current) drug therapy
CPT/HCPCS: 36415; 76705; 80053; 81001; 82570; 84156; 84550; 85025; 87086; 96365; 96366; 96375; G0378; G0379; J3475; J7120

== ENCOUNTER 2023-02-21 10:00 | Outpatient (RCR) | payer BC, SELFPAY ==
[2023-02-13 10:36] LABS: Basophils Percent Auto 0.3 % (0.2-1.2); Eosinophils Percent Auto 0.4 % (0-4.4); Hematocrit 36.6 % (37.0-47.0); Hemoglobin 12.9 g/dL (12.0-15.0); Immature Granulocyte Absolute 0.12 K/mm3 (0.00-0.031); Immature Granulocyte Percent A 1.2 % (0-0.5); Lymphocytes Percent Auto 22.6 % (18.3-44.2); Mean Corpuscular HGB Conc 35.2 g/dl (32-36); Mean Corpuscular Hemoglobin 30.4 pg (26-34); Mean Corpuscular Volume 86.3 fl (80-100); Mean Platelet Volume 9.5 fl (7.4-10.4); Monocytes Absolute Auto 0.3 K/mm3 (0.1-0.6); Monocytes Percent Auto 3.5 % (2.6-8.5); Platelet Count Result 250 k/mm3 (150-375); Red Blood Count 4.24 M/mm3 (4.2-5.4); Red Cell Distribution Width 12.7 % (11.5-14.5); White Blood Count 9.7 K/mm3 (4.5-10.0)
[2023-02-13 11:38] LABS: Alanine Aminotransferase 32 U/L (6-35); Albumin Level 3.1 g/dL (3.5-5.1); Alkaline Phosphatase 149 U/L (38-126); Anion Gap 5 mmol/L (8-16); Aspartate Amino Transferase 27 U/L (14-36); Bilirubin,Total 0.4 mg/dL (0.2-1.3); Blood Urea Nitrogen 13 mg/dL (7-17); Calcium 8.1 mg/dL (8.4-10.2); Carbon Dioxide 24 mmol/L (22-30); Chloride 103 mmol/L (98-107); Estimated Glomerular Filt Rate > 60; Glucose 97 mg/dL (65-110); Potassium 3.6 mmol/L (3.4-5.0); Sodium 132 mmol/L (137-145); Uric Acid 6.4 mg/dL (2.5-7.5)
[2023-02-13 11:51] VITALS: BP 120/84; PULSE 62
== END 2023-05-08 12:53 | disposition home or self-care (01) ==
LOC: ANHOBOP 10:00
PROVIDERS: Visit Provider Obstetrics & Gynecology
DX: O14.93 Unspecified pre-eclampsia, third trimester (principal); Z3A.31 31 weeks gestation of pregnancy
CPT/HCPCS: 36415; 59025; 80053; 84550; 85025